=== PATIENT | male | born 1965 | race Caucasian/White ===

== ENCOUNTER 2023-01-14 10:32 | Inpatient (IN) | payer BC ==
[~2023-01-14 10:32] MED LIST: Iopamidol 300 61% 100 ML VIAL FS ONE
[2023-01-14] MEDS ORDERED: Lidocaine 1% (PF) 30 ML VIAL ONE (11:00)
[2023-01-14] MEDS ORDERED: Verapamil 5 MG/2 ML VIAL ONE (11:00)
[2023-01-14] MEDS ORDERED: Nitroglycerin 50 MG/250 ML BOT 250 ML ONE (11:00)
[2023-01-14] MEDS ORDERED: Heparin 10,000 UNITS/ 10 ML VIAL ONE (11:00)
[2023-01-14] MEDS ORDERED: Communication Order-Pharmacy FS SCH (11:00)
[2023-01-14] MEDS ORDERED: Midazolam HCl 2 mg/2 ml Vial ONE ×2 (11:01→12:04)
[2023-01-14] MEDS ORDERED: fentaNYL 50 mcg/mL 1 mL Vial ONE ×2 (11:01→12:04)
[2023-01-14] MEDS ORDERED: Atropine Sulfate 1 mg/1 ml Vial ONE (11:09)
[2023-01-14] MEDS ORDERED: Aspirin Chewable 81 MG TAB ONE (11:09)
[2023-01-14] MEDS ORDERED: Adenosine 6 MG/2 ML VIAL ONE (11:10)
[2023-01-14 11:11] LABS: #Monocytes 0.6 10x3/uL (0.0-1.1); #Neutrophils 6.3 10x3/uL (1.5-8.4); %Basophils 0.4 % (0.0-2.0); %Eosinophils 0.2 % (0.0-6.0); %Lymphocytes 18.3 % (18.0-47.0); %Monocytes 7.3 % (0.0-10.0); %Neutrophils 73.6 % (40.0-75.0); Hematocrit 46.6 % (38.8-50.0); Mean Corpuscular HGB CONC 34.3 g/dL (32.0-36.0); Mean Corpuscular Hemoglobin 32.2 pg (27.0-33.0); Mean Corpuscular Volume 93.8 fl (81.2-95.1); Mean Platelet Volume 10.3 fl (7.4-10.4); Platelet Count 216 10x3/uL (150-450); RBC Distribution Width 12.5 % (11.5-14.5); Red Blood Cell (RBC) Count 4.97 10x6/uL (4.32-5.72); White Blood Cell (WBC) Count 8.5 10x3/uL (3.5-10.5)
[2023-01-14 11:14] LABS: PTT 30.3 sec (22.0-33.0); Prothrombin Time 10.9 sec (9.5-12.1)
[2023-01-14 11:24] LABS: ALT (SGPT) 77 U/L (8-55); AST (SGOT) 86 U/L (5-34); Albumin 4.5 g/dL (3.5-5.0); Alkaline Phosphatase 86 U/L (40-110); Anion Gap 14 mmol/L (10-20); BUN (Urea Nitrogen) 11 mg/dL (8.4-25.7); Bilirubin, Total 0.8 mg/dL (0.2-1.2); Calc. Creatinine Clearance 0 mL/min (70-130); Calcium 9.2 mg/dL (7.8-10.44); Carbon Dioxide 22 mmol/L (22-29); Chloride 108 mmol/L (98-107); Estimated GFR 101; Globulin 2.6 g/dL (2.4-3.5); Glucose 140 mg/dL (70-105); Potassium 3.8 mmol/L (3.5-5.1); Protein, Total 7.1 g/dL (6.0-8.3); Sodium 140 mmol/L (136-145)
[2023-01-14 11:37] LABS: Troponin I 9.625 ng/mL (< 0.028)
[2023-01-14] MEDS ORDERED: Loperamide HCl 2 MG CAP PO PRN (11:53)
[2023-01-14] MEDS ORDERED: Senokot S 8.6-50 MG TAB PO PRN (11:53)
[2023-01-14] MEDS ORDERED: Zolpidem Tartrate 5 MG TAB PO PRN (11:53)
[2023-01-14] MEDS ORDERED: Calcium Carbonate 500 MG ChewTAB PO PRN (11:53)
[2023-01-14] MEDS ORDERED: Ondansetron PF 4 MG/2 ML Vial IVP PRN (11:53)
[2023-01-14] MEDS ORDERED: HYDROcodone/Acetaminophen 5/325 mg Tablet PO PRN ×2 (11:53)
[2023-01-14] MEDS ORDERED: TICAGRELOR 90 MG TABLET ONE (11:59)
[2023-01-14] MEDS ORDERED: Sodium Chloride 0.9% 200 ML IV PRN (12:55)
[2023-01-14] MEDS ORDERED: Nitroglycerin 0.4 MG TAB (25 Tab Bottle) SL PRN (12:55)
[2023-01-14] MEDS ORDERED: Acetaminophen/Codeine 30-300mg Tablet PO PRN ×2 (12:55)
[2023-01-14 13:14] VITALS: BMI 24.6
[2023-01-14] MEDS: TICAGRELOR 90 MG TABLET PO SCH ×2 (14:07→21:43)
[2023-01-14 16:47] LABS: Troponin I 22.942 ng/mL (< 0.028)
[2023-01-14] MEDS ORDERED: Metoprolol Tartrate 5 MG/5 ML VIAL IVP SCH (17:15)
[2023-01-14] MEDS ORDERED: Metoprolol Tartrate 25 MG TAB PO SCH (21:00)
[2023-01-14] MEDS: Atorvastatin Calcium 40 MG TAB PO SCH (21:43)
[2023-01-15 04:09] LABS: Anion Gap 14 mmol/L (10-20); BUN (Urea Nitrogen) 11 mg/dL (8.4-25.7); Calc. Creatinine Clearance 116 mL/min (70-130); Calcium 9.1 mg/dL (7.8-10.44); Carbon Dioxide 21 mmol/L (22-29); Cardiac Risk 3.7 (Less than 4.5); Chloride 107 mmol/L (98-107); Cholesterol 157 mg/dl (< 200 Desired); Estimated GFR 103; Glucose 113 mg/dL (70-105); HDL Cholesterol 42 mg/dL (>60 Neg Risk); LDL Cholesterol, Calculated 96 mg/dL; Potassium 3.7 mmol/L (3.5-5.1); Sodium 138 mmol/L (136-145); Triglycerides 93 mg/dL (Less than 150)
[2023-01-15 04:23] LABS: #Neutrophils 8.6 10x3/uL (1.5-8.4); %Basophils 0.4 % (0.0-2.0); %Eosinophils 0.4 % (0.0-6.0); %Lymphocytes 11.3 % (18.0-47.0); %Neutrophils 78.7 % (40.0-75.0); Hematocrit 44.4 % (38.8-50.0); Hemoglobin 15.2 g/dL (13.5-17.5); Mean Corpuscular HGB CONC 34.2 g/dL (32.0-36.0); Mean Corpuscular Hemoglobin 32.3 pg (27.0-33.0); Mean Corpuscular Volume 94.3 fl (81.2-95.1); Mean Platelet Volume 10.4 fl (7.4-10.4); Platelet Count 225 10x3/uL (150-450); RBC Distribution Width 12.6 % (11.5-14.5); Red Blood Cell (RBC) Count 4.71 10x6/uL (4.32-5.72); White Blood Cell (WBC) Count 10.9 10x3/uL (3.5-10.5)
[2023-01-15] MEDS: Aspirin 81 mg Enteric Coated Tablet PO SCH (08:15)
[2023-01-15] MEDS: TICAGRELOR 90 MG TABLET PO SCH ×2 (08:15→21:48)
[2023-01-15] MEDS ORDERED: Ivabradine 5 MG TAB PO SCH ×2 (09:00→10:00)
[2023-01-15] MEDS ORDERED: Lisinopril 2.5 MG TAB PO SCH (09:00)
[2023-01-15] MEDS ORDERED: Metoprolol Tartrate 50 MG TAB PO SCH (09:00)
[2023-01-15] MEDS ORDERED: Lisinopril 5 MG TAB PO SCH ×2 (09:00)
[2023-01-15 09:14] LABS: ALT (SGPT) 62 U/L (8-55); AST (SGOT) 58 U/L (5-34); Albumin 4.1 g/dL (3.5-5.0); Alkaline Phosphatase 83 U/L (40-110); Bilirubin, Direct 0.4 mg/dL (0.1-0.3); Protein, Total 6.9 g/dL (6.0-8.3)
[2023-01-15] MEDS: Carvedilol 6.25 MG TAB PO SCH (18:01)
[2023-01-15] MEDS: Ivabradine 5 MG TAB PO SCH (21:48)
[2023-01-15] MEDS: Atorvastatin Calcium 40 MG TAB PO SCH (21:48)
[2023-01-16] MEDS ORDERED: Sacubitril 24MG/Valsartan 26 MG TAB PO SCH ×2 (09:15→21:00)
[2023-01-16] MEDS: Carvedilol 6.25 MG TAB PO SCH (09:29)
[2023-01-16] MEDS: TICAGRELOR 90 MG TABLET PO SCH (09:29)
[2023-01-16] MEDS: Aspirin 81 mg Enteric Coated Tablet PO SCH (09:29)
[2023-01-16] MEDS: Ivabradine 5 MG TAB PO SCH (09:29)
[2023-01-16 12:40] VITALS: BP 109/64; TEMP 98.6
[2023-01-18] MEDS ORDERED: Sacubitril 24MG/Valsartan 26 MG TAB PO SCH (09:00)
== END 2023-01-16 13:45 | disposition home or self-care (01) | DRG 322 ==
LOC: CSHERS 10:32 → CSHCCL 11:34 → CSHICU 12:45 → CSHTELE 01-15 16:30
PROVIDERS: ADMIT Specialist; ATTEND Specialist
PROC: 4A023N7 Measurement of Cardiac Sampling and Pressure, Left Heart, Percutaneous Approach (ICD-10-PCS; principal; 2023-01-14)
PROC: 027034Z Dilation of Coronary Artery, One Artery with Drug-eluting Intraluminal Device, Percutaneous Approach (ICD-10-PCS; 2023-01-14)
PROC: B2111ZZ Fluoroscopy of Multiple Coronary Arteries using Low Osmolar Contrast (ICD-10-PCS; 2023-01-14)
PROC: B2151ZZ Fluoroscopy of Left Heart using Low Osmolar Contrast (ICD-10-PCS; 2023-01-14)
PROC: B241ZZ3 Ultrasonography of Multiple Coronary Arteries, Intravascular (ICD-10-PCS; 2023-01-14)
DX: I21.4 Non-ST elevation (NSTEMI) myocardial infarction (principal); E78.5 Hyperlipidemia, unspecified; I25.5 Ischemic cardiomyopathy; I25.10 Atherosclerotic heart disease of native coronary artery without angina pectoris; I24.9 Acute ischemic heart disease, unspecified; G47.30 Sleep apnea, unspecified; Z82.49 Family history of ischemic heart disease and other diseases of the circulatory system; Z79.899 Other long term (current) drug therapy
CPT/HCPCS: 36415; 71045; 80048; 80053; 80061; 80076; 83880; 84484; 85025; 85347; 85610; 85730; 92928; 92978; 93005; 93010; 93306; 93458; 99152; 99153; C1753; C1769; C1874; C1887; C1894; C9600; J0153; J0461; J1644; J2001; J2250; J3010; Q9967

== ENCOUNTER 2023-02-07 17:11 | Emergency (ER) | payer BC ==
[2023-02-07] MEDS ORDERED: Aspirin 325 mg Enteric Coated Tablet ONE (17:39)
[2023-02-07 17:53] LABS: #Eosinphils 0.1 10x3/uL (0.0-0.5); #Monocytes 0.5 10x3/uL (0.0-1.1); #Neutrophils 3.7 10x3/uL (1.5-8.4); %Basophils 0.5 % (0.0-2.0); %Eosinophils 1.3 % (0.0-6.0); %Lymphocytes 30.4 % (18.0-47.0); %Monocytes 8.6 % (0.0-10.0); Hematocrit 46.9 % (38.8-50.0); Hemoglobin 15.5 g/dL (13.5-17.5); Mean Corpuscular Volume 93.8 fl (81.2-95.1); Mean Platelet Volume 10.5 fl (7.4-10.4); Platelet Count 220 10x3/uL (150-450); RBC Distribution Width 12.9 % (11.5-14.5); White Blood Cell (WBC) Count 6.3 10x3/uL (3.5-10.5)
[2023-02-07 18:04] LABS: ALT (SGPT) 44 U/L (8-55); AST (SGOT) 32 U/L (5-34); Albumin 4.9 g/dL (3.5-5.0); Alkaline Phosphatase 64 U/L (40-110); Anion Gap 15 mmol/L (10-20); BUN (Urea Nitrogen) 14 mg/dL (8.4-25.7); Bilirubin, Total 0.4 mg/dL (0.2-1.2); Calc. Creatinine Clearance 0 mL/min (70-130); Calcium 9.5 mg/dL (7.8-10.44); Carbon Dioxide 22 mmol/L (22-29); Chloride 108 mmol/L (98-107); Estimated GFR 98; Glucose 140 mg/dL (70-105); Potassium 3.7 mmol/L (3.5-5.1); Protein, Total 7.9 g/dL (6.0-8.3); Sodium 141 mmol/L (136-145)
[2023-02-07 18:40] LABS: Troponin I 0.065 ng/mL (< 0.028)
== END 2023-02-07 19:02 | disposition home or self-care (01) ==
LOC: CSHERS 17:11
DX: R07.89 Other chest pain (principal); G40.909 Epilepsy, unspecified, not intractable, without status epilepticus
CPT/HCPCS: 71045; 80053; 83880; 84484; 85025; 93005